=== PATIENT | female | born 1990 | race African-American/Black ===

== ENCOUNTER 2016-10-20 05:39 | Emergency (ER) | payer BC ==
[~2016-10-20] VITALS: Ht 165.1 cm; Wt 77.3 kg
[~2016-10-20 05:39] MED LIST: ALBUTEROL0.09 MG/A1 IH; ALBUTEROL0.83 MG/ML IH; CIPRO 500MG TA500 MG PO; LORTAB 7.5/5001 TAB PO; NORCO 325 MG-51 TAB PO; OMNICEF 300MG300 MG PO; PREDNISONE20 MG PO; PRENATAL1 TA1; PROVENTIL0.09 MG/A1 IH; RELION VEN0.09 MG/Ac IH; VALTREX1 GM
[2016-10-20 05:45] VITALS: TEMP 98.8
[2016-10-20] MEDS ORDERED: PREDNISONE20 MG PO (06:00)
[2016-10-20] MEDS ORDERED: EPIPEN 2-PAK1 MG/ML IM (06:00)
[2016-10-20 08:33] VITALS: BP 99/58; PULSE 94
== END 2016-10-20 08:17 | disposition home or self-care (01) ==
LOC: COL.ER 05:39
DX: L50.9 Urticaria, unspecified (principal)
CPT/HCPCS: J0171; J1200; J7030; J7512

== ENCOUNTER 2017-07-01 14:38 | Emergency (ER) | payer BC ==
[~2017-07-01] VITALS: Ht 165.1 cm; Wt 75.9 kg
[~2017-07-01 14:38] MED LIST changes: +EPIPEN 2-PAK1 MG/ML IM
[2017-07-01 14:40] VITALS: TEMP 97.9
[2017-07-01] MEDS ORDERED: PROAIR HFA0.09 MG/AC IH (14:46)
[2017-07-01] MEDS ORDERED: NORCO 325 MG-51 TAB PO (16:48)
[2017-07-01 17:33] VITALS: BP 131/84; PULSE 86
== END 2017-07-01 17:34 | disposition home or self-care (01) ==
LOC: COL.ER 14:38
DX: S43.014A Anterior dislocation of right humerus, initial encounter (principal); J45.909 Unspecified asthma, uncomplicated; F17.210 Nicotine dependence, cigarettes, uncomplicated; Z98.890 Other specified postprocedural states
CPT/HCPCS: J2250; J2405; J3010; J7030

== ENCOUNTER 2018-05-31 10:24 | Emergency (ER) | payer MEDICAID ==
[~2018-05-31] VITALS: Ht 165.1 cm; Wt 75.0 kg
[~2018-05-31 10:24] MED LIST changes: +PROAIR HFA0.09 MG/AC IH
[2018-05-31 10:25] VITALS: BP 114/78; PULSE 90; TEMP 98
== END 2018-05-31 11:49 | disposition left against medical advice (07) ==
LOC: COL.ER 10:24
DX: S43.004A Unspecified dislocation of right shoulder joint, initial encounter (principal); F17.210 Nicotine dependence, cigarettes, uncomplicated; X50.1XXA Overexertion from prolonged static or awkward postures, initial encounter; Y92.59 Other trade areas as the place of occurrence of the external cause

== ENCOUNTER 2018-12-15 12:59 | Emergency (ER) | payer MEDICAID ==
[~2018-12-15] VITALS: Ht 167.6 cm; Wt 90.5 kg
[2018-12-15 13:01] VITALS: TEMP 99.2
[2018-12-15 16:24] VITALS: BP 92/45; PULSE 63
== END 2018-12-15 18:12 | disposition home or self-care (01) ==
LOC: COL.ER 12:59
DX: S43.51XA Sprain of right acromioclavicular joint, initial encounter (principal); S90.811A Abrasion, right foot, initial encounter; X58.XXXA Exposure to other specified factors, initial encounter

== ENCOUNTER 2019-07-16 19:18 | Emergency (ER) | payer SELFPAY ==
[~2019-07-16] VITALS: Ht 165.1 cm; Wt 90.5 kg
[2019-07-16 19:29] VITALS: BP 110/63; TEMP 97.5
[2019-07-16] MEDS ORDERED: CEPHALEXIN500 M1 PO (21:11)
[2019-07-16] MEDS ORDERED: BACTRIM DS 8001 TAB PO (21:11)
[2019-07-16 21:42] VITALS: PULSE 78
== END 2019-07-16 21:45 | disposition home or self-care (01) ==
LOC: COL.ER 19:18
DX: L02.31 Cutaneous abscess of buttock (principal); F17.210 Nicotine dependence, cigarettes, uncomplicated
CPT/HCPCS: J2405; J3010; J7030

== ENCOUNTER 2021-07-04 19:09 | Emergency (ER) | payer MEDICAID ==
[~2021-07-04] VITALS: Ht 167.6 cm; Wt 81.8 kg
[~2021-07-04 19:09] MED LIST changes: +BACTRIM DS 8001 TAB PO; +CEPHALEXIN500 M1 PO
[2021-07-04 19:12] VITALS: BP 113/65; TEMP 98.2
[2021-07-04] MEDS ORDERED: CLEOCIN HCL300 MG PO (19:37)
[2021-07-04 19:45] VITALS: PULSE 89
== END 2021-07-04 19:45 | disposition home or self-care (01) ==
LOC: COL.ER 19:09
DX: K04.7 Periapical abscess without sinus (principal); F17.210 Nicotine dependence, cigarettes, uncomplicated

== ENCOUNTER 2021-08-21 21:02 | Emergency (ER) | payer MEDICAID ==
[~2021-08-21] VITALS: Ht 167.6 cm; Wt 85.5 kg
[~2021-08-21 21:02] MED LIST changes: +CLEOCIN HCL300 MG PO
[2021-08-21 21:59] LABS: BASO # 0.1 K/mm3 (0.0-0.2); BASO % 0.4 % (0.0-2.0); EOS # 0.4 K/mm3 (0.0-0.7); EOS % 2.1 % (0-4.0); GRAN # 12.9 K/mm3 (1.4-6.5); GRAN % 75.8 % (42.2-75.2); HEMATOCRIT 40.5 % (37.0-47.0); HEMOGLOBIN 13.5 g/dl (12.5-16.0); LYMPH # 2.9 K/mm3 (1.2-3.4); MEAN CELL VOLUME 94 fl (80.0-100.0); MEAN CORPUSCULAR HEMOGLOBIN 32 pg (27.0-31.0); MEAN CORPUSCULAR HGB CONC 33 g/dl (33.0-37.0); MEAN PLATELET VOLUME 10.7 fl (7.4-10.4); MONO # 0.7 K/mm3 (0.1-0.6); MONO % 4.3 % (1.7-9.3); PLATELET COUNT 324 K/mm3 (130-400); RED BLOOD COUNT 4.29 M/mm3 (4.10-5.30); REDCELL DISTRIBUTION WIDTH-CV 14.6 % (11.5-14.5)
[2021-08-21 22:03] LABS: COLLECTION METHOD CLEAN CATCH
[2021-08-21 22:13] LABS: MUCOUS Present (NOT PRESENT); PH 5 (5-8); URINE APPEARANCE Hazy (CLEAR/HAZY); URINE BACTERIA Rare (NONE SEEN); URINE BILIRUBIN Negative (NEGATIVE); URINE BLOOD 2+ (NEGATIVE); URINE COLOR Yellow (YELLOW); URINE GLUCOSE Negative (NEGATIVE); URINE KETONE Negative (NEGATIVE); URINE LEUKOCYTE ESTERASE 3+ (NEGATIVE); URINE NITRATE Negative (NEGATIVE); URINE PROTEIN(semi-quant) Negative (NEGATIVE); URINE RBC 0-2 /hpf (0-2); URINE UROBILINOGEN Negative (NEGATIVE)
[2021-08-21 22:19] LABS: ALBUMIN 4.1 gm/dL (3.5-5.0); BILIRUBIN,TOTAL 0.5 mg/dL (0.2-1.2); CALCIUM 8.5 mg/dL (8.4-10.2); CREATININE, serum 0.77 mg/dL (0.57-1.11); POTASSIUM 3.5 mmol/L (3.5-4.5); TOTAL PROTEIN 7.1 gm/dL (6.2-8.1)
[2021-08-21] MEDS ORDERED: CIPRO 500MG TA500 MG PO (23:07)
[2021-08-21 23:25] VITALS: BP 122/62; PULSE 80; TEMP 98.3
== END 2021-08-21 23:20 | disposition home or self-care (01) ==
LOC: COL.ER 21:02
PROVIDERS: Emergency Medicine
DX: N39.0 Urinary tract infection, site not specified (principal); R22.0 Localized swelling, mass and lump, head
CPT/HCPCS: J0696; J2270; J7030; Q9967